=== PATIENT | female | born 1995 | race Caucasian/White ===

== ENCOUNTER 2024-02-13 14:13 | Emergency (ER) | payer SELFPAY ==
[2024-02-13] VITALS (32 sets, daily range): BP systolic 120–128; BP diastolic 67–89; PULSE 97–125; RESP 14–32; TEMP 36.4; O2SAT 94–99
--- NOTE | 2024-02-13 14:15 | RT.EKG_ITS ---
APPROVED REPORT Exam: Resting ECG Reason for Exam: CP/SOB Patient Location: E HR:112 bpm ECG Measurements Heart Rate 112 AXIS TX 148 P 42 QRSd 79 QRS -2 QT 318 T -8 QTc 434 Conclusion Sinus tachycardia...rate> 99 Probable left atrial enlargement...P >50mS, <-0.10mV V1 I have reviewed and interpreted ECG and agree with software generated interpretation.
--- NOTE | 2024-02-13 14:44 | ED.GENADUL_ITS ---
Discharge Plan Disposition Patient Disposition: Home Condition: Stable Discharge Details Clinical Impression: Multifocal pneumonia Primary Care Provider: None,None ED Provider: Lee Toledos and New Rx's Prescriptions: New cefpodoxime 200 mg tablet 200 mg PO BID Qty: 20 0RF Rx Instructions: must administer with a meal/food azithromycin 250 mg tablet 250 mg PO HS Qty: 4 0RF Discharge Instructions Instructions: Pneumonia, Adult ED Additional Instructions: You were found to have pneumonia in both lungs which explains your complaints. Your exam, vital signs, oxygenation level are otherwise reassuring. You have been given antibiotics that will cover you until tomorrow evening. 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 Rest and push fluids to stay hydrated. You have been referred to case management and should expect a call in regards to follow-up with the PCP in the area. You should return to the ED for any worsening shortness of breath, confusion, new or worsening chest pain, persistent vomiting, other concerns. Referrals: Care Management [Provider Group] HPI General Mode of arrival: ambulatory . Date/Time Provider Initiated Documentation: 02/13/24 14:44 . Limitations to Documentation: no limitations . Information obtained by: patient and RN notes reviewed . HPI Narrative: Patient presents to ED with complaint of shortness of breath. Patient reports developing cough, body aches, fever and chills, malaise on Wednesday. Continues to feel worse and is now short of breath with any type of exertion. Has some nausea and occasional vomiting but has been trying to stay hydrated. Has chest pain with deep breathing which feels like a burning sensation across the center of her chest. Denies any back pain. Denies significant nasal congestion or sore throat. Has had headaches. She is otherwise healthy and takes no medications but does have a medicated IUD, she thinks Mirena. She is not a smoker. She has no prior history of DVT or PE. She has no leg pain or leg swelling. She has a daughter at home diagnosed with pneumonia and placed on antibiotics early last week. Related Data Home Medications ?Medication ?Instructions ?Recorded ?Confirmed azithromycin 250 mg tablet 250 mg PO HS #4 tabs 02/13/24 cefpodoxime 200 mg tablet 200 mg PO BID #20 tabs 02/13/24 Previous Rx's ?Medication ?Instructions ?Recorded azithromycin 250 mg tablet 250 mg PO HS #4 tabs 02/13/24 cefpodoxime 200 mg tablet 200 mg PO BID #20 tabs 02/13/24 Allergies Allergy/AdvReac Type Severity Reaction Status Date / Time No Known Allergies Allergy Unverified 02/13/24 14:22 General Stated Complaint: SOB BETTE: 3 Review of Systems Narrative: per HPI Exam Narrative Exam Narrative: Const: WDWN female in NAD. VS per triage. HEENT: NC/AT. Normal facial exam. Neck: Supple. Trachea midline. Lungs: Normal respiratory effort. Lungs are clear. Cor: RRR without murmur. Tachy. Good radial pulses. GI: Soft/ND/NT. Neuro: A+O x 3. Normal speech, mentation, gait. Cranial nerves II - XII grossly intact. No gross motor or sensory deficit. Ext: No C/C/E. No calf tenderness. Course Vital Signs Vital signs: Vital Signs Temperature 97.6 F 02/13/24 14:15 Pulse 125 H 02/13/24 14:15 Respiratory Rate 16 02/13/24 14:15 Blood Pressure 128/89 02/13/24 14:15 Pulse Oximetry 98 02/13/24 14:15 Temperature 97.6 F 02/13/24 14:15 Temperature Source Temporal Artery Scan 02/13/24 14:15 Pulse 125 H 02/13/24 14:15 Pulse 110 H 02/13/24 14:35 Respiratory Rate 16 02/13/24 14:23 Respiratory Effort Short of Breath 02/13/24 14:23 Respiratory Depth Normal 02/13/24 14:23 Respiratory Pattern Normal 02/13/24 14:23 Blood Pressure 128/89 02/13/24 14:15 Blood Pressure Position Sitting 02/13/24 14:15 Pulse Oximetry 98 02/13/24 14:35 Oxygen Delivery Method Room Air 02/13/24 14:15 Oxygen Flow Rate 0 02/13/24 14:15 Pain Level 6 02/13/24 14:15 Medical Decision Making Patient presenting to ED with complaint of shortness of breath especially with exertion. She is also having burning chest pain with deep breathing. History certainly seems consistent with URI or pneumonia. However, lungs are completely clear, she is quite tachycardic, she is significantly short of breath with exertion. No risk factor for DVT/PE. Still given the tachycardia, pleuritic pain, dyspnea with exertion cannot completely rule out possibility of PE. I have very little concern for cardiovascular pathology. Will place IV and give a liter of fluid, as patient has had a couple of episodes of vomiting and has been trying to keep up with fluid hydration but may be tachycardic due to dehydration. Will check labs including a D-dimer. Chest imaging per results of D-dimer. Patient's EKG obtained on arrival is sinus tachycardia with normal intervals and axis, no acute ST changes. Laboratory studies show a normal white count of 7.8 with normal differential. Chemistries with slightly low potassium at 3.3 otherwise unremarkable. Fluvid is negative. D-dimer 744 so CTA obtained. Per preliminary radiology read there is no PE. She does have multifocal infiltrates consistent with pneumonia. Heart rate has come down and she has been tolerating oral fluids here. Saturations have remained normal. Heart rate is returned normal. She should do well with outpatient treatment. She was given a dose of IV ceftriaxone and initial oral dose of azithromycin. She will be continued on cefpodoxime and azithromycin as outpatient. She does not have primary care and will be referred to care management to help arrange for PCP and follow-up later this week. She is to rest and hydrate at home. Return precautions discussed. Lab Data Lab results reviewed: Yes I reviewed the patient's lab results. Lab results narrative: see [facility] ECG Data Attestation: I personally reviewed and interpreted this ECG (s) as follows: Prior ECG tracings: not available for review Interpretation: see EKG/[facility] All Active Problems (Updated 02/13/24 @ 17:32 by Lee Toledo MD) Multifocal pneumonia (Acute) Medical History No significant past medical history Surgical History No significant past surgical history Social History Smoking/Tobacco Use Status: Never Smoking risk assessment performed?: Yes
[2024-02-13 15:35] LABS: Abs Immature Grans 0.02 10^3/uL (0.0-0.06); Absolute Basophil Count 0.02 10^3/uL (0.0-0.2); Absolute Lymphocyte Count 0.98 10^3/uL (1.2-3.4); Absolute Monocyte Count 0.66 10^3/uL (0.1-0.8); Basophils % 0.3 %; Eosinophils % 1.3 %; HCT 37.8 % (36.0-46.0); HGB 12.5 g/dL (11.2-15.7); Immature Grans % 0.3 %; Lymphocytes % 12.6 %; MCH 29.5 pg (27.0-33.0); MCHC 33.1 % (32.0-36.0); MCV 89 fL (80-95); MPV 9.8 fL (8.0-11.0); Monocytes % 8.5 %; Platelet Count 266 10^3/uL (130-400); RBC 4.24 10^6/uL (3.93-5.22); RDW 12.5 % (11.7-14.6); RDW-SD 40.7 fL; WBC 7.78 10^3/uL (4.4-10.8)
[2024-02-13 15:44] LABS: Anion Gap 10.6 mmol/L (3-11); BUN 10 mg/dL (7-18); CO2 28.4 mmol/L (21.0-32.0); CREATININE 0.6 mg/dL (0.55-1.02); Calcium 8.6 mg/dL (8.5-10.1); Chloride 103 mmol/L (98-107); Estimated GFR 126.09 (mL/min/1.73m2); Glucose 89 mg/dL (74-106); Magnesium 1.9 mg/dL (1.8-2.4); Potassium 3.3 mmol/L (3.5-5.1); Sodium 142 mmol/L (136-145)
[2024-02-13 15:51] LABS: HCG Qual (Serum) Negative
--- NOTE | 2024-02-13 16:00 | DI.CT_ITS ---
Exam(s) CT CHEST PE CTA EXAM: CT CHEST PE CTA CLINICAL HISTORY: SOB, pleuritic pain, +d-dimer. TECHNIQUE: Imaging Protocol: Axial CT angiography was performed with multi-slice acquisition and mu lti-planar reconstructions as well as axial, coronal and sagittal MIP reconstructions. Computer aided detection (CAD) was utilized. CONTRAST MATERIAL: Intravenous: Omnipaque 350 Contrast volume:85 ml COMPARISON: No exams were available for comparison FINDINGS: Exam is limited by image noise. Pulmonary Arteries: Evaluation somewhat limited due to image noise. No visible filling defect to sug gest pulmonary emboli. Mediastinum and Julieta: Mildly enlarged, reactive lymph nodes. Pulmonary parenchyma: Bilateral upper lobe infiltrates. Areas of consolidation seen in inferior righ t upper lobe and lingula. Patchy infiltrates also seen in the superior segment of left the lower lo be. Pleura tiny bilateral pleural effusions. No pneumothorax. Heart: The heart is not dilated. No coronary artery calcifications are seen. Aorta: Thoracic aorta non-dilated. No dissection. Upper abdomen: No acute findings. Bones: Unremarkable for age. Tubes, Catheters, and Lines: None Soft tissues: Unremarkable. IMPRESSION: No evidence of pulmonary embolism. Bilateral pneumonia with significant areas of consolidation in the anterior inferior right upper lobe and lingula. RADIATION DOSE DELIVERED: 96.85mGy.cm Total DLP DATA REPOSITORY: All CT scans at this facility are submitted to the National Radiology Data Registry (NRDR) Dose Index Registry (DIR) with the [employer] (ACR). RADIATION OPTIMIZATION: All CT scans at this facility use at least one of these dose optimization te chniques: automated exposure control; mA and/or kV adjustment per patient size (includes targeted exa ms where dose is matched to clinical indication); or iterative reconstruction.
[2024-02-13 16:07] LABS: D-Dimer 744 ng/mlFEU (<500)
[2024-02-13 16:11] LABS: COVID-19 PCR Negative (Negative); Influenza A PCR Negative (Negative); Influenza B PCR Negative (Negative); RSV PCR Negative (Negative)
[2024-02-13 16:12] LABS: Source NASOPHARYNX
[2024-02-13] MEDS: Omnipaque 350 MG/ML 100 ML BTL IJ (16:19)
[2024-02-13] MEDS: Normal Saline - Diluent 50 ML VIAL IJ (16:29)
--- NOTE | 2024-02-13 17:04 | DI.VRAD_ITS ---
PROCEDURE INFORMATION: Exam: CTA Chest With Contrast Exam date and time: 02/13/2024 4:22 PM Age: 28 years old Clinical indication: Pain and abnormal findings; Abnormal diagnostic tests; Elevated d-dimer; Shortness of breath; Pleuordynia; Patient HX: SOB, pleuritic pain, +d-dimer TECHNIQUE: Imaging protocol: Computed tomographic angiography of the chest with contrast. Exam focused on the arteries. 3D rendering (Not supervised by radiologist): MIP and/or 3D reconstructed images were created by the technologist. COMPARISON: No relevant prior studies available. FINDINGS: Limitations: Examination degraded by diffuse technical artifact. Low tnclia-uo-ozlfn ratio with limited resolution. Pulmonary arteries: No pulmonary embolism identified. Aorta: No thoracic aortic aneurysm or dissection. Thyroid: The thyroid gland is partially excluded from view but appears grossly unremarkable through its visualized portion. Thyroid gland partially excluded from view but grossly unremarkable through its visualized portion. Lungs: Extensive patchy bilateral pulmonary opacity with large regions of consolidation in the upper lobes bilaterally. Pleural spaces: Small bilateral pleural effusions. No pneumothorax. Heart: Normal-sized heart. Lymph nodes: Mildly enlarged mediastinal and hilar lymph nodes, likely reactive given the appearance of the lungs. Bones/joints: Lower ribs partially excluded from view and incompletely evaluated. Otherwise, no acute fracture seen among the bones of the chest. Soft tissues: No gross soft tissue mass or fluid collection seen in the chest wall. IMPRESSION: 1. Multifocal pneumonia with large regions of consolidation in the upper lobes bilaterally. 2. Small bilateral pleural effusions. Dictated and Authenticated by: Oscar Mackay MD. Ordering:PEDRO Howard MD
[2024-02-13] MEDS: cefTRIAXone 1 GM/50 ML BAG IVPB (17:59)
[2024-02-13] MEDS: Azithromycin 250 MG TAB 500 MG PO (17:59)
[2024-02-13] MEDS: Acetaminophen 500 MG TAB 1000 MG PO (17:59)
--- NOTE | 2024-02-14 09:52 | NUR.NOTE ---
Patient called stating that the second prescription starting with a C did not send to [facility] in [place]. I called the prescription cefpodoxime in; Miesha Sheffield RN Charge Nurse aware. Nursing Note:
== END 2024-02-13 19:02 | disposition home or self-care (01) ==
LOC: ER 17:50
PROVIDERS: Emergency Provider Emergency Medicine
DX: J18.9 Pneumonia, unspecified organism (principal); R00.0 Tachycardia, unspecified
CPT/HCPCS: 36415; 71275; 80048; 87637; 93005; 96365; 99285; 83735; 84703; 85025; 85379; 93010; 99284; J0696; J3490

== ENCOUNTER 2025-01-03 08:59 | Outpatient (REF) | payer BC, SELFPAY ==
--- NOTE | 2025-01-03 08:45 | PAPFT_PTH ---
PATIENT: Ying Melgar LOC: [facility] U#:[id number] AGE/SX: 29/F ROOM: RE01/03/[address]: Magaly Che NP : 1995 BED: DIS: 01/03/2025 SPEC #: [id number] RECD: 01/03/25 12:53 STATUS: JOSE ANTONIO RERaquel #: [id number] JAYSON: 01/03/25 08:[address]: Magaly Che NP DEPT: [facility] Cytology RECD BY: Adela Cho ENTERED: 01/03/25 12:53 SP TYPE: PAPFT OTHR DR: None Tissues: 1 - CX/ENDOCX FOR PAP SMEARS Procedures: PAP THIN PREP/[facility] Screening HPV DNA PROBE Comments: [id number] (HPV 16 & 18/45)
== END 2025-01-03 09:00 | disposition home or self-care (01) ==
LOC: LBN 08:59
PROVIDERS: Visit Provider Nurse Practitioner Women's Health
DX: Z12.4 Encounter for screening for malignant neoplasm of cervix (principal)
CPT/HCPCS: 88142; 87624